=== PATIENT | female | born 1995 | race Caucasian/White ===

== ENCOUNTER 2017-12-11 12:30 | Inpatient (IN) | payer OTHER ==
[~2017-12-11] VITALS: Ht 170.2 cm; Wt 77.1 kg
[2017-12-11 12:32] VITALS: BP 129/74
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
--- NOTE | 2017-12-11 12:45 | NUR ---
clothing and all other property removed from room--pt in gown water provided as requested by pt
--- NOTE | 2017-12-11 13:15 | NUR ---
REQUESTED FOR LUNCH TRAY AT THIS TIME
--- NOTE | 2017-12-11 13:26 | NUR ---
PT ENCOURAGED TO PROVIDE URINE AT THIS TIME. PT STATES, "I FEEL TO SICK AND HUNGRY TO GET UP AND TRY AND I'M NOT TRYING UNTIL I GET FOOD."
--- NOTE | 2017-12-11 13:30 | NUR ---
PT PROVIDED TRAY AT THIS TIME
[2017-12-11 13:46] LABS: BASOPHILS # (AUTO) 0.1 K/uL (0.00-0.22); BASOPHILS % (AUTO) 0.8 % (0.0-2.0); EOSINOPHILS % (AUTO) 0.3 % (0.0-4.0); HEMATOCRIT 38.5 % (36-48); HEMOGLOBIN 12.9 g/dL (12.0-16.0); LYMPHOCYTES % (AUTO) 14.9 % (20.5-51.1); MEAN CORPUSCULAR HEMOGLOBIN 31 pg (27-31); MEAN CORPUSCULAR HGB CONC 34 g/dL (33-37); MEAN CORPUSCULAR VOLUME 92.7 fL (80-94); MONOCYTES # (AUTO) 0.6 K/uL (0.8-1.0); MONOCYTES % (AUTO) 4.6 % (1.7-9.3); NEUTROPHILS # (AUTO) 10.5 K/uL (1.8-7.7); NEUTROPHILS % (AUTO) 79.4 % (42.2-75.2); PLATELET COUNT (AUTO) 368 K/uL (140-450); RED BLOOD CELL COUNT(AUTO) 4.15 MIL/uL (4.20-5.40); WHITE BLOOD COUNT (AUTO) 13.3 K/uL (4.8-10.8)
[2017-12-11 14:04] LABS: ALBUMIN 3.4 g/dL (3.4-5.0); ANION GAP 15.6 (8-16); ASPARTATE AMINOTRANSFERASE 7 U/L (15-37); CARBON DIOXIDE 25.1 mmol/L (21-32); CHLORIDE 102 mmol/L (98-107); CREATININE 0.6 mg/dL (0.6-1.3); GFR ARICAN-AMERICAN 158 mL/min (>90); GLUCOSE 93 mg/dL (74-106); POTASSIUM 3.7 mmol/L (3.5-5.1); SALICYLATE 3.4 mg/dL (2.8-20.0); SODIUM SERUM 139 mmol/L (136-145); TOTAL BILIRUBIN 0.3 mg/dL (0.0-1.0); UREA NITROGEN, BLOOD 8 mg/dL (7-18)
--- NOTE | 2017-12-11 14:12 | NUR ---
DR ALVAREZ INFORMING PT OF AND THE TESTING TO BE DONE. PT IS REFUSING ALL TREAMENTS
--- NOTE | 2017-12-11 14:21 | NUR ---
pt refused ultrasound, notified ---pt provided # [phone] [place] to be called, no answer busy tone
[2017-12-11 14:33] LABS: APPEARANCE,URINE CLEAR (CLEAR); BILIRUBIN,URINE 1+ (NEGATIVE); BLOOD, URINE NEGATIVE (NEGATIVE); COLOR,URINE ORANGE (YELLOW); LEUKOCYTE ESTERASE ,URINE NEGATIVE (NEGATIVE); NITRITE, URINE NEGATIVE (NEGATIVE); UGLUCOSE NEGATIVE (NEGATIVE)
[2017-12-11 14:39] LABS: BARBITURATE, URINE NEG. ng/ml (NEG <=200); BENZODIAZEPINE, URINE NEG. ng/mL (NEG <=200); CANNABINOID, URINE POS. ng/mL (NEG <=50); COCAINE, URINE NEG. ng/mL (NEG <=300); OPIATE, URINE NEG. ng/mL (NEG <=2000); PHENCYCLIDINE SCREEN,URINE NEG. ng/mL (NEG <=25)
--- NOTE | 2017-12-11 14:44 | NUR ---
PT APPEARS TO BE SLEEPING IN NO APPEARENT DISTRESS, RR EVEN AND UNLABORED. CONTINIOUS PT MONITORING INPLACE
[2017-12-11 15:05] LABS: ACETAMINOPHEN < 0.5 ug/ml (10-30)
--- NOTE | 2017-12-11 15:19 | NUR ---
PT IS TEARFUL, ATTEMPTED TO TALK TO PT, PT STATED "GET OUT AND AND SHUT THE FUKING BLINDS DUDE"
--- NOTE | 2017-12-11 15:21 | NUR ---
PT TOOK OFF WHITE METAL RING AND THROUGH IT TO WALL, PT STATED I AM TIRED OF LOOKING AT YOU FUCKING FACE" "SHUT THE FUCKING BLINDS" WILL ATTEMPT TO FIND WHITE METAL RING.
--- NOTE | 2017-12-11 15:24 | NUR ---
PT IS REQUESTING EARPLUGS, COTTON BALLS PROVIDED
--- NOTE | 2017-12-11 15:40 | NUR ---
PT SITTING UP AT EDGE OF BED, SHAKING FOOT. PT IN NO APPEARENT DISTRESS AT THIS TIME
--- NOTE | 2017-12-11 15:50 | NUR ---
PT DEEMED MEDICALLY CLEARD BY DR ALVAREZ
--- NOTE | 2017-12-11 15:52 | NUR ---
PT WITH MULTIPLE RAPID MOVEMENTS, MESSING WITH HAIR AND SHAKING FOOT, APPEARS TO BE RESTLESS, WHITE DISCOLORED METAL RING WITH CLEAR ROCK FOUND PLACED IN CUP AND LABLED, SECURITY CALLED FOR [employer]ACLE HRMS DEVELOPER
--- NOTE | 2017-12-11 16:10 | NUR ---
PT IS BECOMING INCREASINGLY AGITATED, SLAPPING ARMS AND WRIST. STARING AT STAFF AT AND STICKING MIDDLE FINDER AT STAFF
--- NOTE | 2017-12-11 16:12 | NUR ---
PT AT ASKING FOR ANOTHER FOOS TRAY, DR ALVAREZ MADE AWARE. PT ASKING FOR CAT SCAN, PT REMINDED THAT SHE IS , PT STATES " I DONT CARE" " I AM GOING TO GET AN ANY WAY" Addendum: 12/11/17 at 1617 by [facility] FOOD*
--- NOTE | 2017-12-11 16:31 | NUR ---
FOOD TRAY ORDERED FOR PT, PT OFFERED PUDDING, CRACKERS AND JUICE AT THIS TIME.
--- NOTE | 2017-12-11 17:20 | NUR ---
PT AMBULATED TO THE RESTROOM IN NO APPEARENT DISTRESS
--- NOTE | 2017-12-11 17:21 | NUR ---
FOOD TRAY PROVIDED
[2017-12-11] MEDS ORDERED: DOCUSATE SODIUM 100 MG GELCAP PO PRN (17:40)
[2017-12-11] MEDS ORDERED: ONDANSETRON 4 MG/2 ML VIAL IM/IVP PRN (17:40)
[2017-12-11 18:03] LABS: PROTHROMBIN TIME 9.8 secs (10.8-13.4)
--- NOTE | 2017-12-11 18:11 | NUR ---
LAB AT BEDSIDE
--- NOTE | 2017-12-11 18:21 | NUR ---
Patient will be admitted to care of JIHAN VELAZQUEZ. Admited to M/S. Will go to room 110A. Belongings list completed. Report to ELISABETH GARDNER.
--- NOTE | 2017-12-11 18:25 | NUR ---
RECEIVED FROM ER VIA [employer]. AWAKE, ALERT, AND ORIENTED X4. SPEECH CLEAR. NO C/O PAIN. CALM, QUIET, AND COOPERATIVE AT THIS TIME. NO SUICIDAL THOUGHTS OBSERVED. KEEP ENVIRONMENT SAFE. CLOSELY MONITORED BY A SITTER FOR SUICIDAL PREVENTION.
[2017-12-11 18:55] LABS: MAGNESIUM 1.7 mg/dL (1.8-2.4); PHOSPHORUS 4.2 mg/dL (2.5-4.9); THYROID STIMULATING HORMONE 1.68 uIU/mL (0.34-3.74)
--- NOTE | 2017-12-11 19:26 | NUR ---
BEDSIDE REPORT GIVEN TO DONNELL PRINCE. PT. RESTING ON BED COMFORTABLY AND CLOSELY MONITORED BY SITTER FOR SUICIDAL PREVENTION. ALSO ENDORSED THAT PT. FOR ADMISSION.
--- NOTE | 2017-12-11 19:27 | NUR ---
RECEIVED REPORT FROM DAY SHIFT RN, FOR CONTINUITY OF CARE. PT IS ON ROOM AIR. PT REFUSES TO ANSWER ANY QUESTIONS. SHE ONLY ANSWERS " I DON'T KNOW" OR "I DON'T CARE" OR SHE WILL JUST SHRUG SHOULDERS. SHE REFUSED TO LET SKIN BE CHECKED THOROUGHLY. NO SIGNS OF DISTRESS NOTED AT THIS TIME. BED IN LOWEST POSITION, BED ALARM ON. CALL LIGHT WITHIN REACH, WILL CONTINUE TO MONITOR.
--- NOTE | 2017-12-11 19:45 | NUR ---
PT REFUSED ABDOMINAL ULTRASOUND AND SAID "I JUST WANT TO BE LEFT ALONE."
[2017-12-11] MEDS ORDERED: MAGNESIUM OXIDE 400 MG TAB PO SCH (20:00)
[2017-12-11] MEDS: NACL 0.9% 1,000 ML IV SCH (20:00)
[2017-12-11 21:00] VITALS: BP 112/50
--- NOTE | 2017-12-11 21:25 | NUR ---
PT REFUSED MEDICATIONS AND IV FLUIDS.
--- NOTE | 2017-12-12 | NUR ---
1:1 SITTER AT PT'S ROOM. PT STABLE, NO SIGNS OF DISTRESS NOTED AT THIS TIME. BED IN LOWEST POSITION, BED ALARM ON. CALL LIGHT WITHIN REACH, WILL CONTINUE TO MONITOR.
--- NOTE | 2017-12-12 01:40 | NUR ---
RECEIVED CALL FROM [facility] THAT THERE IS NO BED AVAILABLE.
--- NOTE | 2017-12-12 01:44 | NUR ---
Notified Charge nurse Patricia BOWMAN there are no vacancy at the following [facility] -Mikayla Suarez-Emma moseley will continue to make calls for placement.
--- NOTE | 2017-12-12 02:40 | NUR ---
NO SIGNS OF DISTRESS NOTED AT THIS TIME. BED IN LOWEST POSITION, BED ALARM ON. CALL LIGHT WITHIN REACH, WILL CONTINUE TO MONITOR.
--- NOTE | 2017-12-12 04:17 | NUR ---
NO SIGNS OF DISTRESS NOTED AT THIS TIME. BED IN LOWEST POSITION, BED ALARM ON. WILL CONTINUE TO MONITOR.
--- NOTE | 2017-12-12 07:27 | NUR ---
ENDORSED PT TO DAY SHIFT RN FOR CONTINUITY OF CARE. PT IN STABLE CONDITION.
--- NOTE | 2017-12-12 07:30 | NUR ---
RECEIVED PT FROM INSURANCE ACCOUNT REPRESENTATIVE NURSEDONNELL, PT IS AWAKE AND LYING ON THE BED WITH SIDE RAILS UP AND 1:1 SITTER ON THE BEDSIDE, SAFETY AND SUICIDE PRECAUTION ENFORCED. PT HAS AN IV LINE ON THE RT FA G. 20 ON SALINE LOCK. PT HAS NO SIGN OF DISTRESS AND WILL CONTINUE TO MONITOR PT.
--- NOTE | 2017-12-12 07:55 | NUR ---
PT IS AWAKE AND VITAL SIGNS TAKEN AND IS WITHIN NORMAL LIMITS AND STABLE. NO SIGN OF DISTRESS NOTED AND WILL CONTINUE TO MONITOR PT, 1:1 SITTER ON THE BEDSIDE.
[2017-12-12 08:00] VITALS: BP 104/64
[2017-12-12 08:22] LABS: T4 (THYROXINE) 11.7 ug/dL (4.5-12.0)
[2017-12-12] MEDS: FOLIC ACID 1 MG TAB PO SCH (08:44)
[2017-12-12] MEDS: MULTIVITAMIN 1 TAB PO SCH (08:44)
--- NOTE | 2017-12-12 08:45 | NUR ---
PT IS AWAKE, LYING ON THE BED, MEDICATIONS GIVEN AND PT TOLERATED IT. NO SIGN OF DISTRESS NOTED AND WILL CONTINUE TO MONITOR PT.
--- NOTE | 2017-12-12 09:24 | NUR ---
Late Entry Packet faxed to the following facilities: [facility]
--- NOTE | 2017-12-12 11:18 | NUR ---
[facility] aware patient is still in unit. will continue to look for placement throughout shift. will update unit when new information has been received.
--- NOTE | 2017-12-12 12:47 | NUR ---
PT IS LYING ON THE BED WITH 1:1 SITTER ON THE BEDSIDE, NO SIGN OF DISTRESS NOTED, WILL CONTINUE TO MONITOR PT.
--- NOTE | 2017-12-12 15:14 | NUR ---
PT IS AWAKE AND LYING ON THE BED,QUIET. 1:1 SITTER ON THE BEDSIDE. WILL CONTINUE TO MONITOR PT.
--- NOTE | 2017-12-12 15:40 | NUR ---
PT REFUSED TO HAVE AN IV FLUID RUN ON HER.
[2017-12-12 16:00] VITALS: BP 102/60
--- NOTE | 2017-12-12 16:30 | NUR ---
DR. VALLE CAME TO THE PT'S ROOM AND SPOKE TO THE PT AND PT RESPONDS APPROPRIATELY.
[2017-12-12] MEDS: NACL 0.9% 1,000 ML IV SCH (17:37)
--- NOTE | 2017-12-12 17:45 | NUR ---
PT IS HAVING HER DINNER NOW, QUIET AND IS EATING ADEQUATELY.
--- NOTE | 2017-12-12 18:03 | NUR ---
VERIFIED THE IV FLUID TO RUN FOR THE PT WITH DR. SINGH AND DR. FLORES, RESIDENT DOCTORS SAID THAT THEY WILL D/C THE IV FLUID ORDER.
--- NOTE | 2017-12-12 19:26 | NUR ---
No update from contacted facilities at this time. will continue to look for placement.
--- NOTE | 2017-12-12 19:30 | NUR ---
ENDORSED PT TO SALES CONSULTANT INSURANCE NURSE, DONNELL FOR CONTINUITY OF CARE. PT IS STABLE AT THIS TIME.
--- NOTE | 2017-12-12 19:31 | NUR ---
RECEIVED REPORT FROM DAY SHIFT RN, FOR CONTINUITY OF CARE. PT IS ON ROOM AIR. PT IS ABLE TO MAKE NEEDS KNOWN, ABLE TO FOLLOW COMMANDS. PT BREATHS EQUAL AND UNLABORED. PT HAS SKIN IS INTACT. PT AMBULATES WITH STEADY GAIT. PT HAS A 20G IV TO RIGHT FOREARM, ASYMPTOMATIC AND INTACT. PT STABLE, NO SIGNS OF DISTRESS NOTED AT THIS TIME. BED IN LOWEST POSITION, BED ALARM ON. WILL CONTINUE TO MONITOR.
--- NOTE | 2017-12-12 19:54 | NUR ---
SPOKE WITH DR EUCEDA ABOUT PT REQUESTING MEDICATION TO HELP SLEEP. DR EUCEDA ORDERED BENADRYL. ADMINISTERED MEDICATION, PT TOLERATED WELL.
--- NOTE | 2017-12-12 21:40 | NUR ---
PT TALKING TO HERSELF AND LAUGHING. WHEN TRYING TO SPEAK WITH PT, PT DOES NOT SAY ANYTHING. NO SIGNS OF DISTRESS NOTED AT THIS TIME. 1:1 SITTER LOOKING OUT FOR PT.
[2017-12-12 21:41] LABS: BASOPHILS # (AUTO) 0.1 K/uL (0.00-0.22); EOSINOPHILS # (AUTO) 0.2 K/uL (0-0.4); EOSINOPHILS % (AUTO) 2.2 % (0.0-4.0); HEMATOCRIT 37.1 % (36-48); HEMOGLOBIN 12.3 g/dL (12.0-16.0); LYMPHOCYTES # (AUTO) 2.2 K/uL (2.5-16.5); LYMPHOCYTES % (AUTO) 21.2 % (20.5-51.1); MEAN CORPUSCULAR HEMOGLOBIN 31 pg (27-31); MEAN CORPUSCULAR HGB CONC 33 g/dL (33-37); MEAN CORPUSCULAR VOLUME 94.1 fL (80-94); MONOCYTES # (AUTO) 0.8 K/uL (0.8-1.0); MONOCYTES % (AUTO) 7.5 % (1.7-9.3); NEUTROPHILS # (AUTO) 7.2 K/uL (1.8-7.7); NEUTROPHILS % (AUTO) 68.1 % (42.2-75.2); PLATELET COUNT (AUTO) 319 K/uL (140-450); RED BLOOD CELL COUNT(AUTO) 3.94 MIL/uL (4.20-5.40); RED CELL DISTRIBUTION WIDTH 13.8 % (11.6-13.7); WHITE BLOOD COUNT (AUTO) 10.5 K/uL (4.8-10.8)
[2017-12-12 21:46] LABS: ANION GAP 6.9 (8-16); CARBON DIOXIDE 26.5 mmol/L (21-32); CREATININE 0.7 mg/dL (0.6-1.3); POTASSIUM 4.4 mmol/L (3.5-5.1)
[2017-12-12 21:52] LABS: CHOL/HDL RATIO 4.4 (1-4.5); MAGNESIUM 1.9 mg/dL (1.8-2.4); PHOSPHORUS 4.4 mg/dL (2.5-4.9)
[2017-12-12 23:52] VITALS: BP 103/61
--- NOTE | 2017-12-13 | NUR ---
VITAL SIGNS WITHIN NORMAL LIMITS. PT STABLE, NO SIGNS OF DISTRESS NOTED AT THIS TIME. BED IN LOWEST POSITION, BED ALARM ON. CALL LIGHT WITHIN REACH, WILL CONTINUE TO MONITOR.
--- NOTE | 2017-12-13 04:00 | NUR ---
PT SLEEPING, EASILY AWAKENED. NO SIGNS OF DISTRESS NOTED AT THIS TIME. BED IN LOWEST POSITION, 1:1 SITTER PRESENT.
--- NOTE | 2017-12-13 06:37 | NUR ---
PT STILL RESTING, STABLE, NO SIGNS OF DISTRESS NOTED AT THIS TIME. BED IN LOWEST POSITION, BED ALARM ON.
[2017-12-13 07:01] LABS: BASOPHILS # (AUTO) 0.1 K/uL (0.00-0.22); BASOPHILS % (AUTO) 0.5 % (0.0-2.0); EOSINOPHILS # (AUTO) 0.2 K/uL (0-0.4); EOSINOPHILS % (AUTO) 1.8 % (0.0-4.0); HEMOGLOBIN 12.2 g/dL (12.0-16.0); LYMPHOCYTES # (AUTO) 2.7 K/uL (2.5-16.5); LYMPHOCYTES % (AUTO) 24.6 % (20.5-51.1); MEAN CORPUSCULAR HEMOGLOBIN 31 pg (27-31); MEAN CORPUSCULAR HGB CONC 33 g/dL (33-37); MONOCYTES # (AUTO) 0.7 K/uL (0.8-1.0); MONOCYTES % (AUTO) 6.5 % (1.7-9.3); NEUTROPHILS # (AUTO) 7.4 K/uL (1.8-7.7); NEUTROPHILS % (AUTO) 66.6 % (42.2-75.2); PLATELET COUNT (AUTO) 299 K/uL (140-450); RED BLOOD CELL COUNT(AUTO) 3.93 MIL/uL (4.20-5.40); RED CELL DISTRIBUTION WIDTH 13.6 % (11.6-13.7); WHITE BLOOD COUNT (AUTO) 11.1 K/uL (4.8-10.8)
--- NOTE | 2017-12-13 07:29 | NUR ---
ENDORSED PT TO DAY SHIFT RN FOR CONTINUITY OF CARE. PT IN STABLE CONDITION.
--- NOTE | 2017-12-13 07:35 | NUR ---
RECEIVED PT FROM AUTOMATIC CHIEF NURSEDONNELL, PT IS ASLEEP, 1:1 SITTER ON THE BEDSIDE. SUICIDE AND SAFETY PRECAUTION ENFORCED. RESPIRATIONS EVEN AND NO SIGN OF DISTRESS NOTED, BED IN LOW POSITION. PT HAS AN IV LINE ON SALINE LOCK ON THE RT FA G.20, INTACT. WILL CONTINUE TO MONITOR PT.
[2017-12-13 07:37] LABS: ANION GAP 6.8 (8-16); CARBON DIOXIDE 22.8 mmol/L (21-32); CREATININE 0.5 mg/dL (0.6-1.3); POTASSIUM 3.6 mmol/L (3.5-5.1)
[2017-12-13 08:00] VITALS: BP 115/69
[2017-12-13] MEDS: FOLIC ACID 1 MG TAB PO SCH (08:48)
[2017-12-13] MEDS: MULTIVITAMIN 1 TAB PO SCH (08:48)
--- NOTE | 2017-12-13 09:15 | NUR ---
PT VERBALIZED THAT SHE AGREES TO HAVE AN ULTRASOUND DONE TO HER, ACKNOWLEDGED AND WILL INFORM THE MD.
--- NOTE | 2017-12-13 09:18 | NUR ---
INFORMED DR. SINGH THAT THE PT SAID THAT SHE WANTS TO HAVE AN ULTRASOUND DONE TO HER TODAY, SAID THAT HE WILL PLACE THE ORDER.
--- NOTE | 2017-12-13 09:20 | NUR ---
CALLED RADIOLOGY AND SPOKE TO BRIGETTE AND INFORMED HER ABOUT THE TRANSVAGINAL ULTRASOUND ORDERED FOR THE PT. BRIGETTE ACKNOWLEDGED AND SAID THAT SHE WILL INFORM THE CESSATION SYSTEMS OUTREACH SPECIALIST.
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
--- NOTE | 2017-12-13 14:03 | NUR ---
ULTRASOUND OF THE P[HE IS BEING DONE TO THE PT NOW. PT IS CALM, QUIET AND COMPLIANT.
[2017-12-13 16:00] VITALS: BP 110/58
--- NOTE | 2017-12-13 16:30 | NUR ---
PT TOOK A SHOWER AND WAS ASSISTED BY THE SITTER, NO SIGN OF DISTRESS NOTED ON THE PT.
--- NOTE | 2017-12-13 16:35 | NUR ---
PT IS AWAKE AND LYING ON THE BED, VITAL SIGNS TAKEN AND IS STABLE. NO SIGN OF DISTRESS NOTED. WILL CONTINUE TO MONITOR, 1:1 SITTER ON THE BEDSIDE.
--- NOTE | 2017-12-13 16:48 | NUR ---
There are no updates from faxed/contacted facilities.
--- NOTE | 2017-12-13 17:30 | NUR ---
PT IS SLEEPING AT THIS TIME AND 1:1 SITTER ON THE BEDSIDE.
[2017-12-13] MEDS: NACL 0.9% 1,000 ML IV SCH (17:37)
--- NOTE | 2017-12-13 18:00 | NUR ---
PT IS EATING HER DINNER NOW, QUIET AND CALM, 1:1 SITTER ON THE BEDSIDE. WILL MONITOR PT.
--- NOTE | 2017-12-13 19:20 | NUR ---
ENDORSED PT TO ELL TUTOR NURSESANDRINE FOR CONTINUITY OF CARE. PT IS STABLE AT THIS TIME.
--- NOTE | 2017-12-13 19:21 | NUR ---
RECD. SLEEPING IN BED, WAKES UP EASILY WHEN WAKEN UP. RESPIRATION EVEN AND UNLABORED. IV SALINE LOCK AT THE RIGHT FOREARM G20, PATENT AND INTACT. PLAN OF CARE DISCUSSED. DID NOT SAY ANYTHING. ON 1:1 SITTER, MONITORING PATIENT FOR SAFETY. NO APPEARANCE OF PAIN NOTED 0/10.
--- NOTE | 2017-12-13 20:00 | NUR ---
DR. COLE CAME, AWARE OF RESULT OF TRANSVAGINAL US. SPOKE WITH PATIENT, ABLE TO ANSWERS QUESTIONS COHERENTLY. NO ORDER MADE BUT SUGGESTED TO PATIENT TO FOLLOW UP WITH LOCAL CLINIC AFTER DISCHARGE FROM HOSPITAL.
--- NOTE | 2017-12-13 20:00 | NUR ---
Patient's Plan of Care was discussed and reviewed with [employer] AND CAN SUPPLY SUPERVISOR: SANDRINE BURR.
[2017-12-14] VITALS: BP 108/60
--- NOTE | 2017-12-14 | NUR ---
SLEEPING COMFORTABLY IN BED.
--- NOTE | 2017-12-14 00:33 | NUR ---
No psych beds at the following facilities: [facility], s/w [facility], s/w [facility], s/w [facility], [facility], [facility], [facility], [facility], [facility]
--- NOTE | 2017-12-14 02:10 | NUR ---
AWAKE SITTING IN BED, REQUESTING FOR TYLENOL FOR HEADACHE. INFORMED RESIDENT ON DUTY.
[2017-12-14] MEDS ORDERED: ACETAMINOPHEN EXTRA STRENGTH 500 MG TAB PO SCH (03:00)
--- NOTE | 2017-12-14 03:00 | NUR ---
IN BED WITH EYES CLOSED, REFUSED TYLENOL WHEN ABOUT TO GIVE THE MEDICATION.
--- NOTE | 2017-12-14 06:50 | NUR ---
ABLE TO SLEEP WELL. CONDITION REMAIN STABLE. WILL ENDORSE TO AM NURSE FOR CONTINUITY OF CARE.
[2017-12-14 06:52] LABS: BASOPHILS # (AUTO) 0.1 K/uL (0.00-0.22); BASOPHILS % (AUTO) 0.5 % (0.0-2.0); EOSINOPHILS # (AUTO) 0.2 K/uL (0-0.4); EOSINOPHILS % (AUTO) 1.8 % (0.0-4.0); HEMATOCRIT 37.7 % (36-48); HEMOGLOBIN 12.7 g/dL (12.0-16.0); LYMPHOCYTES # (AUTO) 2.5 K/uL (2.5-16.5); LYMPHOCYTES % (AUTO) 21.1 % (20.5-51.1); MEAN CORPUSCULAR HEMOGLOBIN 31 pg (27-31); MEAN CORPUSCULAR HGB CONC 34 g/dL (33-37); MEAN CORPUSCULAR VOLUME 93.2 fL (80-94); MONOCYTES # (AUTO) 0.7 K/uL (0.8-1.0); MONOCYTES % (AUTO) 5.7 % (1.7-9.3); NEUTROPHILS # (AUTO) 8.3 K/uL (1.8-7.7); NEUTROPHILS % (AUTO) 70.9 % (42.2-75.2); PLATELET COUNT (AUTO) 301 K/uL (140-450); RED BLOOD CELL COUNT(AUTO) 4.04 MIL/uL (4.20-5.40); RED CELL DISTRIBUTION WIDTH 13.4 % (11.6-13.7); WHITE BLOOD COUNT (AUTO) 11.7 K/uL (4.8-10.8)
[2017-12-14 06:58] LABS: ANION GAP 9.7 (8-16); CARBON DIOXIDE 23.2 mmol/L (21-32); CREATININE 0.6 mg/dL (0.6-1.3); POTASSIUM 3.9 mmol/L (3.5-5.1)
--- NOTE | 2017-12-14 07:20 | NUR ---
ENDORSED TO COLBY TELLES FOR CONTINUITY OF CARE.
--- NOTE | 2017-12-14 07:40 | NUR ---
PATIENT WAS SLEEPING COMFORTABLY. RESPIRATION EVEN, UNLABOR ON ROOM AIR. SKIN DRY AND WARM. IV PATENT AND INTACT. COMPLAINED OF ANXIETY. PLAN OF CARE WAS DISCUSSED WITH PATIENT. BED AT LOW POSITION, SIDE RAIL UP. 1:1 SITTER ENSURED
[2017-12-14 08:00] VITALS: BP 116/73
[2017-12-14] MEDS ORDERED: QUEtiapine FUMARATE 25 MG TAB PO SCH ×2 (09:00→21:00)
[2017-12-14] MEDS: MULTIVITAMIN 1 TAB PO SCH (09:02)
[2017-12-14] MEDS: FOLIC ACID 1 MG TAB PO SCH (09:02)
--- NOTE | 2017-12-14 10:00 | NUR ---
PATIENT WAS SLEEPING COMFORTABLY. RESPIRATION EVEN, UNLABOR ON ROOM AIR. NO DISTRESS NOTED AT THIS TIME. 1:1 SITTER ENSURED
--- NOTE | 2017-12-14 13:02 | NUR ---
PATIENT IS SLEEPING COMFORTABLY. RESPIRATION EVEN, UNLABOR ON ROOM AIR. NO DISTRESS NOTED AT THIS TIME
--- NOTE | 2017-12-14 13:20 | NUR ---
Proposal Consultant Note: I called and spoke with Hawa from [facility] , I informed her patient no longer needs inpatient psychiatric placement.
--- NOTE | 2017-12-14 14:00 | NUR ---
PATIENT WAS ASKED TO GET A FLU VACCINE BUT PATIENT REFUSED TAKE A FLU VACCINE .
--- NOTE | 2017-12-14 14:14 | NUR ---
DISCHARGE INSTRUCTION GIVEN VERBALIZED UNDERSTANDING, CALM AND COOPERATIVE , COMMUNICATE WELL REQUESTING BUS PASS AND GIVEN , REMOVED IV LINE, ALL BELONGINGS GIVEN TO HER AND ALL PAPER WORK SIGNED BY THE PATIENT.
--- NOTE | 2017-12-14 14:16 | NUR ---
CM NOTE RECEIVED CALL FROM [employer]LEON OF ADMITTING STATING THAT PATIENT HAS [employer] INSURANCE. RECEIVED FAX FROM [employer] REQUESTING FOR CLINICALS TO BE FAXED TO [phone]. FAXED ER DR'S NOTE, H&P, CONSULTATION NOTE, PROGRESS NOTES, LAB RESULTS, IMAGING REPORT, LIST OF MEDICATIONS TO [employer] [phone].
== END 2017-12-14 14:07 | disposition left against medical advice (07) | DRG 831 ==
LOC: MED 12:30 → MTU 17:42 → EDBD 17:42
PROVIDERS: ADMIT General Practice; ATTEND General Practice
DX: O9A.212 Injury, poisoning and certain other consequences of external causes complicating pregnancy, second trimester (principal); G92 Toxic encephalopathy; F33.2 Major depressive disorder, recurrent severe without psychotic features; F15.20 Other stimulant dependence, uncomplicated; O99.332 Smoking (tobacco) complicating pregnancy, second trimester; E87.1 Hypo-osmolality and hyponatremia; O99.282 Endocrine, nutritional and metabolic diseases complicating pregnancy, second trimester; O99.322 Drug use complicating pregnancy, second trimester; O99.342 Other mental disorders complicating pregnancy, second trimester; Z59.0 Homelessness; T40.7X1A Poisoning by cannabis (derivatives), accidental (unintentional), initial encounter; F29 Unspecified psychosis not due to a substance or known physiological condition; F17.210 Nicotine dependence, cigarettes, uncomplicated; F12.90 Cannabis use, unspecified, uncomplicated; E83.42 Hypomagnesemia; D72.829 Elevated white blood cell count, unspecified; Y92.89 Other specified places as the place of occurrence of the external cause; Z71.51 Drug abuse counseling and surveillance of drug abuser
CPT/HCPCS: 36415; 76817; 80048; 80053; 80305; 81003; 81025; 82140; 82150; 83036; 83690; 83735; 84100; 84134; 84436; 84443; 84479; 84702; 85025; 85610; 85730; 87081; 93005; 99285; G0480; G0482; Q0092; Q0163